=== PATIENT | male | born 1955 | race Caucasian/White ===

== ENCOUNTER 2018-01-02 02:12 | Emergency (ER) | payer OTHER ==
[~2018-01-02] VITALS: Ht 177.8 cm; Wt 82.0 kg
[2018-01-02 02:14] VITALS: BP 142/79
== END 2018-01-02 05:31 | disposition home or self-care (01) ==
LOC: ER 02:12
DX: R09.89 Other specified symptoms and signs involving the circulatory and respiratory systems (principal); R05 Cough
CPT/HCPCS: 71045; 99283; Z7610